=== PATIENT | female | born 1995 | race Caucasian/White ===

== ENCOUNTER → 2024-12-22 | Outpatient (CLI) | payer OTHER, SELFPAY ==
[2024-12-22 17:55] LABS: Absolute Lymphocyte Count 1.85 X10^3/uL (0.83-4.51); Absolute Neutrophil Count 2.8 X10^3/uL (2.0-7.7); Basophil# 0.02 X10^3/uL; Basophil% 0.4 % (0-1); Eosinophil# 0.05 X10^3/uL; Hematocrit 35.9 % (37-47); Hemoglobin 11.6 g/dL (12.0-15.0); Lymphocyte # 1.85 X10^3/ul (0.83-4.51); Lymphocyte % 36.9 % (19-41); Mean Corp Hgb Conc 32.3 g/dL (32-36); Mean Corpuscular Hgb 28.7 pg (27.0-32.0); Mean Corpuscular Volume 88.9 fL (81-99); Mean Platelet Vol. 10.5 fl (6.2-12.0); Monocyte# 0.35 X10^3/uL; NRBC Flagged by Analyzer 0 % (0-5); Neutrophil # 2.75 X10^3/uL (2.7-7.7); Neutrophil % 54.7 % (47-70); Platelet Count 311 K/mm3 (150-450); RBC Distribution Width CV 13.4 % (11.6-14.6); RBC Distribution Width SD 43.8 fl (35.1-43.9); Red Blood Count 4.04 M/mm3 (4.2-5.4)
[2024-12-22 18:21] LABS: ALB/GLOB Ratio 1.2 RATIO (0.9-2.4); AST(SGOT) 35 U/L (<=31); Alanine Aminotransfer ALT/SGPT 42 U/L (<=34); Albumin, Serum 4.5 g/dL (3.5-5.0); Alkaline Phosphatase 57 U/L (35-104); Anion Gap 10 (5-15); BUN 13 mg/dL (4-19); BUN/Creat Ratio 16.6 RATIO (10-20); Calcium,Total 9.4 mg/dL (7.6-11.0); Chloride 107 mmol/L (98-108); EST Glomerular Filtration Rate 101 (>60); Globulin 3.6 g/dL (2.2-4.2); Glucose 73 mg/dL (70-99); Potassium 4.3 mmol/L (3.3-5.1); Protein, Total 8.1 g/dL (5.9-8.4); Sodium Level 140 mmol/L (133-145); Total Bilirubin 0.23 mg/dL (0.00-1.30); Vitamin B12 396 pg/mL (180-914); Vitamin D,25 Hydroxy 41.4 ng/mL (30-100)
[2024-12-23 16:51] LABS: Ferritin 60 ng/mL (22-378); Hepatitis B Surface Antigen Nonreactive (Nonreactive); Hepatitis C Antibody Nonreactive (Nonreactive); Iron 66 ug/dL (50-170); Iron Binding Capacity,Total 380 ug/dL (250-450); Iron Binding Capacity,Unsat 314 ug/dL (228-428)
[2024-12-23 20:35] LABS: Hepatitis B Surface Antibody Nonreactive
[2024-12-26 16:08] LABS: Thyroid Peroxidase AB 178 IU/mL (0-34)
== END | disposition home or self-care (01) ==
PROVIDERS: PCP Family Medicine; Referring Provider Family Medicine; Visit Provider Family Medicine
DX: E04.1 Nontoxic single thyroid nodule (principal); D64.9 Anemia, unspecified; R79.89 Other specified abnormal findings of blood chemistry; R53.83 Other fatigue
CPT/HCPCS: 36415; 80053; 82306; 82607; 82728; 83540; 83550; 84439; 84443; 84445; 85025; 86376; 86706; 86803; 87340

== ENCOUNTER → 2025-01-05 | Outpatient (CLI) | payer OTHER, SELFPAY ==
--- NOTE | 2025-01-05 12:48 | US_ITS ---
PROCEDURE: THYROID 01/05/2025 REASON FOR EXAM: NODULE ON EXAM FROM [facility] 1.3 CM TECHNIQUE: High-frequency thyroid ultrasound, including grayscale and color-flow images. REFERENCE LINKS: TI-RADS Chart: [email or web address] [email or web address] Calculator Tool with Reference Images: [email or web address] FINDINGS: Right thyroid lobe size: 5.8 x 1.9 x 2.1 cm Left thyroid lobe size: 5.6 x 1.7 x 1.8 cm Isthmus: 0.7 cm Background parenchymal echotexture is heterogenous. No discrete nodules are identified by the technologist. US/Thyroid IMPRESSION: Heterogeneous thyroid parenchyma, suggestive of underlying thyroid disease. No discrete nodularity. Reading Location: [id number]
== END | disposition home or self-care (01) ==
LOC: US 12:47
PROVIDERS: PCP Family Medicine; Referring Provider Family Medicine; Visit Provider Family Medicine
DX: E04.1 Nontoxic single thyroid nodule (principal)
CPT/HCPCS: 76536